=== PATIENT | male | born 1960 | race Two or more races ===

== ENCOUNTER 2020-05-21 12:42 | Emergency (ER) | payer MEDICAID, OTHER ==
[~2020-05-21] VITALS: Ht 182.9 cm; Wt 81.6 kg
[2020-05-21 14:25] VITALS: BP 136/71
== END 2020-05-21 15:46 | disposition home or self-care (01) ==
LOC: ER 12:42
DX: S62.111A Displaced fracture of triquetrum [cuneiform] bone, right wrist, initial encounter for closed fracture (principal); E11.9 Type 2 diabetes mellitus without complications; E78.5 Hyperlipidemia, unspecified; I10 Essential (primary) hypertension; W07.XXXA Fall from chair, initial encounter; Y93.89 Activity, other specified; Y92.89 Other specified places as the place of occurrence of the external cause; Y99.8 Other external cause status
CPT/HCPCS: 29125; 73110